=== PATIENT | male | born 1975 ===

== ENCOUNTER 2021-10-25 04:25 | Day surgery (SDC) | payer OTHER ==
[2021-10-20 14:45] VITALS: BMI 25.0
[2021-10-25] MEDS ORDERED: LIDOCAINE HCL 1%, 10 MG/ML (20ML VIAL) ONE (14:31)
[2021-10-25] MEDS ORDERED: PROPOFOL 20 ML ONE (14:35)
[2021-10-25] MEDS ORDERED: MIDAZOLAM HCL 2 MG/2 ML SINGLE DOSE VIAL ONE ×2 (14:35→15:13)
[2021-10-25] MEDS ORDERED: LIDOCAINE HCL/PF 2% SDV 5ML VIAL ONE (14:35)
[2021-10-25] MEDS ORDERED: DEXAMETHASONE SOD PHOSPHATE 4 MG/1 ML VIAL ONE (14:35)
[2021-10-25] MEDS ORDERED: ALBUTEROL SO4 HFA INHALER IH ONE (14:40)
[2021-10-25] MEDS ORDERED: ceFAZolin SODIUM 1 GM VIAL IVPB ONE (15:20)
[2021-10-25] MEDS ORDERED: ceFAZolin SODIUM 1 GM VIAL ONE (15:23)
[2021-10-25] MEDS ORDERED: LIDOCAINE HCL 1%, 10 MG/ML (20ML VIAL) SQ ONE ×2 (15:24)
[2021-10-25] MEDS ORDERED: ONDANSETRON 4 MG/2 ML VIAL IVPUSH PRN (16:32)
[2021-10-25 16:42] VITALS: RESP 20; TEMP 97.1
[2021-10-25 16:48] VITALS: BP 120/74; PULSE 59
== END 2021-10-25 17:00 | disposition home or self-care (01) ==
LOC: JASU-SURG 04:25
PROVIDERS: ATTEND Surgery
PROC: 0JB80ZZ Excision of Abdomen Subcutaneous Tissue and Fascia, Open Approach (ICD-10-PCS; principal; 2021-10-25 14:00)
DX: L72.0 Epidermal cyst (principal)
CPT/HCPCS: 88304-TC; 94760